=== PATIENT | female | born 1985 | race Caucasian/White ===

== ENCOUNTER 2017-02-10 20:33 | Emergency (ER) | payer SELFPAY ==
[~2017-02-10] VITALS: Ht 167.6 cm; Wt 97.5 kg
[2017-02-10] MEDS ORDERED: RX-CIPROFLOXACIN (CILOXAN) 0.3% OP SOLN 2.5 ML OU STA (21:29)
[2017-02-10] MEDS ORDERED: AMOXICILLIN 500 MG (POLYMOX) CAP PO STA (21:29)
[2017-02-10] MEDS ORDERED: HYDROcodone/APAP 5 MG/325 MG (LORTAB) TAB PO ONE (21:30)
[2017-02-10] MEDS ORDERED: ONDANSETRON 4 MG (ZOFRAN) ORAL DISSOLVE TAB PO ONE (21:30)
--- NOTE | 2017-02-10 21:36 | ED EENT ---
History of Present Illness General Chief Complaint: Ear Problems Stated Complaint: RT EAR PAIN,HEADACHE Nursing Triage Note: c/o R ear pain x 3 days Source: patient Exam Limitations: no limitations History of Present Illness Time seen by provider: 21:34 Initial Comments To ER with c/o right earache x3 days. Headache, nausea. Timing/Duration: abrupt Severity: moderate Location: ear (R) Allergies and Home Medications Allergies Coded Allergies: No Known Drug Allergies (Unverified , 02/10/17) Home Medications No Active Prescriptions or Reported Meds Review of Systems Constitutional: see HPI Eyes: No Symptoms Reported Ears: See HPI, Pain Nose: no symptoms reported Mouth: no symptoms reported Throat: no symptoms reported Respiratory: no symptoms reported Cardiovascular: no symptoms reported Past Zujaqoe-Vzngoi-Jwqphw Hx Patient Social History Alcohol Use: Denies Use Recreational Drug Use: No Smoking Status: Never a Smoker Recent Foreign Travel: No Contact w/Someone Who Travel: No Recent Infectious Disease Expo: No Surgeries History of Surgeries: No Respiratory History of Respiratory Disorde: No Cardiovascular History of Cardiac Disorders: No Neurological History of Neurological Disord: No Genitourinary History of Genitourinary Disor: No Gastrointestinal History of Gastrointestinal Di: No Musculoskeletal History of Musculoskeletal Dis: No Endocrine History of Endocrine Disorders: No HEENT History of HEENT Disorders: No Cancer History of Cancer: No Psychosocial History of Psychiatric Problem: No Integumentary History of Skin or Integumenta: No Blood Transfusions History of Blood Disorders: No Physical Exam Vital Signs Vital Sign - Last 12Hours 02/10/17 21:20 Temp 98.9 Pulse 104 Resp 18 B/P (MAP) 141/103 Pulse Ox 99 General Appearance: WD/WN, no apparent distress Eyes: bilateral eye normal inspection, bilateral eye PERRL, bilateral eye EOMI Ears: right ear other (Right external ear canal is swollen and very tender. ) Progress/Results/Core Measures Results/Orders My Orders Orders - FAITH BOLIVAR APRN Hydrocodone/Apap 5/325 Tablet (Lortab 5 (02/10/17 21:30) Ondansetron Oral Dissolve Tab (Zofran (02/10/17 21:30) Amoxicillin Capsule (Polymox Capsule) (02/10/17 21:29) Rx-Ciprofloxacin Ophth Soln (Rx-Ciloxan (02/10/17 21:29) Vital Signs/I&O Vital Sign - Last 12Hours 02/10/17 21:20 Temp 98.9 Pulse 104 Resp 18 B/P (MAP) 141/103 Pulse Ox 99 Blood Pressure Mean: 116 Departure Impression Impression: Primary Impression: Right otitis externa Disposition: 01 HOME, SELF-CARE Condition: Stable Departure-Patient Inst. Decision time for Depature: 21:40 Referrals: NO,LOCAL PHYSICIAN (PCP/Family) Primary Care Physician Patient Instructions: Outer Ear Infection (DC) Add. Discharge Instructions: 1. Antibiotic drops as directed 2. Return to ER for any concerns 3. Follow-up with your doctor next week for recheck All discharge instructions reviewed with patient and/or family. Voiced understanding. Scripts Ofloxacin (Floxin) 10 Ml Drops 7 DROPS OT BID for 7 Days, DROPS Prov: FAITH BOLIVAR APRN 02/10/17 Amoxicillin (Amoxicillin) 500 Mg Capsule 500 MG PO TID, #21 CAP Prov: FAITH BOLIVAR APRN 02/10/17 Hydrocodone/Acetaminophen ([place] 5-325 Tablet) 1 Each Tablet 1 EACH PO Q6H Y for PAIN-MODERATE TO SEVERE, #10 TAB Prov: FAITH BOLIVAR APRN 02/10/17 Work/School Note: Work Release Form Date Seen in the Emergency Department: Feb 10, 2017 Return to Work: Feb 12, 2017 FAITH BOLIVAR APRN Feb 10, 2017 21:35
[2017-02-10] MEDS ORDERED: OFLO10DR24 OT (21:42)
[2017-02-10] MEDS ORDERED: AMOX500C2 PO (21:42)
[2017-02-10] MEDS ORDERED: HYDR-757 PO (21:42)
[2017-02-10 21:58] VITALS: BP 122/62
== END 2017-02-10 21:57 | disposition home or self-care (01) ==
LOC: ER 20:36
DX: H60.91 Unspecified otitis externa, right ear (principal)
CPT/HCPCS: 99283

== ENCOUNTER → 2018-09-29 | Outpatient (CLI) | payer SELFPAY ==
[~2018-09-29] MED LIST: AMOX500C2 PO; HOLD METFORMIN - RECEIVED CONTRAST 20 ML VIAL IV SCH; HYDR-4226 PO; IOHEXOL 350 MG/ML 100 ML (OMNIPAQUE 350) VIAL IV ONE; OFLO10DR24 OT
--- NOTE | 2018-09-29 13:08 | Diagnostic Imaging Report ---
PROCEDURE: CT abdomen and pelvis with contrast. TECHNIQUE: Multiple contiguous axial images were obtained through the abdomen and pelvis after administration of intravenous contrast. Auto Exposure Controls were utilized during the CT exam to meet ALARA standards for radiation dose reduction. INDICATION: Pelvic mass. COMPARISON: No prior examinations are available for comparison. FINDINGS: There is a very large unilocular cystic abdominal/pelvic mass measuring maximally 18 cm transverse x 10.8 cm AP x 20.5 cm cephalocaudal. This is presumed of ovarian etiology; however, we could not define the left or right ovary as the source of this mass. The identifiable portions of both ovaries show some follicular cysts. The left ovary does appear more closely approximating the caudal aspect of this lesion. The large unilocular cystic mass did not show an enhancing mural or soft tissue component and showed no evidence for internal septations at CT. There is a small volume of pelvic free fluid at the cul-de-sac which is unremarkable in a female patient of this age. The liver density suggests mild steatosis. The gallbladder, bile ducts, spleen, adrenals, and pancreas are all negative. The kidneys are unobstructed and normal. There is no mesenteric or retroperitoneal lymphadenopathy. There is no ileus or bowel obstruction. No suspicious lytic or sclerotic bone lesion. The lung bases are unremarkable. IMPRESSION: 1. There is a very large unilocular cystic abdominal/pelvic mass which is likely ovarian in etiology, favor left more likely than right. It shows no appreciable complexity to suggest its malignancy; however, given its very large size, a gynecological consultation is needed if not already performed. 2. Trace pelvic free fluid is believed physiologic. No findings to suggest underlying metastatic disease, obstruction, or acute pathology. Dictated by: Dictated on workstation # [id number]
== END ==
LOC: RAD 10:54
PROVIDERS: ATTEND Physician Assistant
DX: R19.00 Intra-abdominal and pelvic swelling, mass and lump, unspecified site (principal)
CPT/HCPCS: 74177

== ENCOUNTER 2018-10-13 06:19 | Outpatient (CLI) | payer SELFPAY ==
[~2018-10-13] VITALS: Ht 167.6 cm; Wt 113.9 kg
[~2018-10-13 06:19] MED LIST changes: -HOLD METFORMIN - RECEIVED CONTRAST 20 ML VIAL IV SCH; -IOHEXOL 350 MG/ML 100 ML (OMNIPAQUE 350) VIAL IV ONE
== END 2018-10-13 12:52 | disposition home or self-care (01) ==
LOC: PREOP 06:19
PROVIDERS: ATTEND Obstetrics & Gynecology
DX: Z01.818 Encounter for other preprocedural examination (principal)